=== PATIENT | male | born 1950 | race Caucasian/White ===

== ENCOUNTER 2020-10-21 08:34 | Emergency (ER) | payer MEDICARE ==
[~2020-10-21] VITALS: Ht 185.4 cm; Wt 90.7 kg
[~2020-10-21 08:34] MED LIST: NORPTMEDS CO
[2020-10-21 09:12] VITALS: BP 148/96
[2020-10-21] MEDS ORDERED: LIDOCAINE 1% HCL (LOCAL ANESTH.) INJ 20ML MDV IJ ONE (09:30)
== END 2020-10-21 09:04 | disposition home or self-care (01) ==
LOC: ER 08:34
DX: S61.012A Laceration without foreign body of left thumb without damage to nail, initial encounter (principal); F17.210 Nicotine dependence, cigarettes, uncomplicated; W27.0XXA Contact with workbench tool, initial encounter; Y93.89 Activity, other specified; Y92.89 Other specified places as the place of occurrence of the external cause; Y99.8 Other external cause status
CPT/HCPCS: 12002; 73140

== ENCOUNTER 2022-03-26 02:28 | Inpatient (IN) | payer MEDICARE, OTHER ==
[2022-03-26] VITALS (50 sets, daily range): BP systolic 70–126; BP diastolic 38–72
[~2022-03-26] VITALS: Ht 182.9 cm; Wt 93.4 kg
[2022-03-26] MEDS ORDERED: ONDANSETRON HCL 4 MG/2 ML VIAL IV ONE (02:45)
[2022-03-26] MEDS ORDERED: SODIUM CHLORIDE 0.9% 1,000 ML IV ONE ×3 (02:45→09:30)
[2022-03-26 02:54] LABS: Basophils # (auto) 0 10 ^3/uL (0-0.2); Basophils % (auto) 0.1 % (0.0-2.0); Eosinophils # (auto) 0 10 ^3/uL (0-0.8); Eosinophils % (auto) 0.2 % (0.0-7.0); Hematocrit 32.4 % (41.0-53.0); Hemoglobin 10.7 g/dL (13.5-17.5); Lymphocytes # (auto) 2.4 10 ^3/uL (0.4-5.4); Lymphocytes % (auto) 14.3 % (10.0-50.0); Mean Corpuscular Hemoglobin 32.9 pg (28.0-32.0); Mean Corpuscular Volume 99.6 fL (80.0-100.0); Monocytes # (auto) 0.1 10 ^3/uL (0-1.3); Monocytes % (auto) 0.9 % (0.0-12.0); Neutrophils % (auto) 84.5 % (37.0-80.0); Nucleated Red Blood Cells % 0.1 %; Red Blood Cells 3.25 10^6/uL (4.5-5.90); Red Cell Distribution Width 12.7 % (11.8-14.3); White Blood Cell 16.6 10^3/uL (4.4-10.8)
[2022-03-26 03:22] LABS: Albumin 2.9 g/dL (3.4-5.0); Anion Gap 13 (5-15); Blood Alcohol < 3.0 mg/dL (0-5); Blood Urea Nitrogen 40 mg/dL (7-18); Calcium 8.2 mg/dL (8.5-10.1); Carbon Dioxide 20 mmol/L (21-32); Chloride 112 mmol/L (98-107); Glucose 219 mg/dL (74-106); Potassium 4.7 mmol/L (3.5-5.1); Sodium 145 mmol/L (136-145)
[2022-03-26 03:25] LABS: Alanine Aminotransferase 104 U/L (16-61); Alkaline Phosphatase 42 U/L (45-117); Aspartate Aminotransferase 79 U/L (15-37); BUN/Creatinine Ratio 32.5; Bilirubin, Total 0.4 mg/dL (0.2-1.0); GFR African American 75 mL/min; GFR Non-African American 62 mL/min; Total Protein 5.4 g/dL (6.4-8.2)
[2022-03-26] MEDS: NOREPINEPHRINE 8 MG/250ML KIT 250 ML IV SCH (05:42)
[2022-03-26 08:39] LABS: Hemoglobin 10.1 g/dL (13.5-17.5)
[2022-03-26] MEDS ORDERED: PANTOPRAZOLE 40 MG/10 ML VIAL INJ IV ONE (09:30)
[2022-03-26] MEDS ORDERED: PANTOPRAZOLE 80 MG in SODIUM CHL 0.9% 100 ML IV ONE (09:30)
[2022-03-26 09:31] LABS: Urine Bacteria NONE SEEN /hpf (None Seen); Urine Blood Negative /uL (Negative); Urine Hyaline Cast FEW /lpf (0 - 2); Urine Mucus FEW (None Seen); Urine Specific Gravity 1.044 (1.001-1.035); Urine WBC 1 /hpf (0 - 3)
[2022-03-26 09:54] LABS: Hematocrit 29.2 % (41.0-53.0); Hemoglobin 9.7 g/dL (13.5-17.5)
[2022-03-26] MEDS ORDERED: ONDANSETRON HCL 4 MG/2 ML VIAL IV PRN (10:00)
[2022-03-26] MEDS: SODIUM CHLORIDE 0.9% 1,000 ML IV SCH ×2 (10:00→18:22)
[2022-03-26] MEDS ORDERED: DEXTROSE (50%) 50ML SYRG IV PRN (10:45)
[2022-03-26] MEDS ORDERED: cefTRIAXone 1GM/50ML D5W 50 ML IV SCH (11:30)
[2022-03-26] MEDS: InsuLIN REG 1unit/0.01ml Soln (100units/ml) SC SCH ×2 (12:28→18:00)
[2022-03-26] MEDS: ACCU-CHEK COMFORT CURVE STRIP VI SCH ×2 (12:28→18:22)
[2022-03-26 12:43] LABS: INR 1.25 (0.9-1.15)
[2022-03-26] MEDS: MORPHINE SULFATE INJ 2 MG/ml SYRG IV PRN (12:48)
[2022-03-26] MEDS ORDERED: VANCOMYCIN 1GM/250ML 250 ML IV SCH ×2 (13:30→22:00)
[2022-03-26] MEDS ORDERED: VANCOMYCIN PER PHARMACY 0 MG IV SCH (13:30)
[2022-03-26] MEDS ORDERED: VANCOMYCIN PER PHARMACY 1,000 MG IV SCH (13:45)
[2022-03-26] MEDS ORDERED: VANCOMYCIN 1GM/250ML 250 ML IV ONE (15:15)
[2022-03-26] MEDS: PIPERACILLIN-TAZOB 3.375GM 100 ML IV SCH ×2 (16:40→21:48)
[2022-03-26] MEDS ORDERED: PIPERACILLIN-TAZOB 3.375GM 100 ML IV SCH (18:00)
[2022-03-26] MEDS ORDERED: LORazepam 2MG/ML-1ML VIAL IV ONE ×2 (18:15→19:50)
[2022-03-26] MEDS ORDERED: HALOPERIDOL LACTATE 5 MG/ML INJ VIAL IM ONE (19:45)
[2022-03-26] MEDS ORDERED: LORazepam 2MG/ML-1ML VIAL ONE (19:49)
[2022-03-26] MEDS ORDERED: HALOPERIDOL LACTATE 5 MG/ML INJ VIAL ONE (19:54)
[2022-03-26 21:39] LABS: Hematocrit 26.6 % (41.0-53.0); Hemoglobin 9.3 g/dL (13.5-17.5)
[2022-03-26] MEDS: OCTREOTIDE ACETATE 500 MCG in SODIUM CHL 0.9% 99 ML IV SCH (21:48)
[2022-03-26] MEDS: PANTOPRAZOLE 40 MG/10 ML VIAL INJ IV SCH (21:48)
[2022-03-26 22:07] LABS: Lactic Acid w/Reflex 2.1 mmol/L (0.4-2.0)
[2022-03-27] VITALS (35 sets, daily range): BP systolic 91–138; BP diastolic 35–72
[2022-03-27] MEDS: ACCU-CHEK COMFORT CURVE STRIP VI SCH ×4 (00:10→17:38)
[2022-03-27] MEDS: LORazepam 2MG/ML-1ML VIAL IV PRN ×3 (00:12→21:55)
[2022-03-27] MEDS: SODIUM CHLORIDE 0.9% 1,000 ML IV SCH ×3 (00:38→17:14)
[2022-03-27 00:44] LABS: Hematocrit 24.5 % (41.0-53.0); Hemoglobin 8.7 g/dL (13.5-17.5)
[2022-03-27] MEDS: ACETAMINOPHEN 325 MG RECT SUPP PR PRN (01:36)
[2022-03-27] MEDS: OCTREOTIDE ACETATE 500 MCG in SODIUM CHL 0.9% 99 ML IV SCH ×3 (03:00→21:58)
[2022-03-27] MEDS: VANCOMYCIN 1GM/250ML 250 ML IV SCH ×2 (03:28→17:14)
[2022-03-27] MEDS: PIPERACILLIN-TAZOB 3.375GM 100 ML IV SCH ×4 (03:28→21:55)
[2022-03-27] MEDS: NOREPINEPHRINE 8 MG/250ML KIT 250 ML IV SCH (05:00)
[2022-03-27] MEDS: InsuLIN REG 1unit/0.01ml Soln (100units/ml) SC SCH ×4 (06:00→17:38)
[2022-03-27 06:44] LABS: Basophils # (auto) 0 10 ^3/uL (0-0.2); Basophils % (auto) 0.1 % (0.0-2.0); Eosinophils # (auto) 0 10 ^3/uL (0-0.8); Mean Corpuscular Hgb Conc. 34.8 g/dL (32.0-36.0)
[2022-03-27 06:45] LABS: Hematocrit 22.6 % (41.0-53.0); Hemoglobin 7.9 g/dL (13.5-17.5); Lymphocytes # (auto) 1.3 10 ^3/uL (0.4-5.4); Lymphocytes % (auto) 6.1 % (10.0-50.0); Mean Corpuscular Hemoglobin 33.3 pg (28.0-32.0); Mean Corpuscular Volume 95.6 fL (80.0-100.0); Monocytes # (auto) 0.9 10 ^3/uL (0-1.3); Monocytes % (auto) 4.2 % (0.0-12.0); Neutrophils # (auto) 19.2 10 ^3/uL (1.6-8.6); Neutrophils % (auto) 89.6 % (37.0-80.0); Red Blood Cells 2.36 10^6/uL (4.5-5.90); White Blood Cell 21.4 10^3/uL (4.4-10.8)
[2022-03-27 07:00] LABS: Potassium 4.2 mmol/L (3.5-5.1)
[2022-03-27 07:09] LABS: Albumin 2.8 g/dL (3.4-5.0); Bilirubin, Total 0.8 mg/dL (0.2-1.0); Calcium 7.9 mg/dL (8.5-10.1); Total Protein 4.8 g/dL (6.4-8.2)
[2022-03-27] MEDS: PANTOPRAZOLE 40 MG/10 ML VIAL INJ IV SCH ×2 (09:38→21:55)
[2022-03-27] MEDS: MORPHINE SULFATE INJ 2 MG/ml SYRG IV PRN ×3 (10:17→19:54)
[2022-03-27 10:29] LABS: Urine Bacteria NONE SEEN /hpf (None Seen); Urine Blood Negative /uL (Negative); Urine Specific Gravity 1.021 (1.001-1.035); Urine WBC 1 /hpf (0 - 3)
[2022-03-27 16:08] LABS: Hematocrit 23.8 % (41.0-53.0); Hemoglobin 8.1 g/dL (13.5-17.5)
[2022-03-27] MEDS ORDERED: HYDR-4798 PO (17:02)
[2022-03-27] MEDS ORDERED: PRAV20TA3 PO (17:02)
[2022-03-27] MEDS ORDERED: GABA300C10 PO (17:02)
[2022-03-27] MEDS ORDERED: RIVA20TA PO (17:02)
[2022-03-28] VITALS (49 sets, daily range): BP systolic 96–155; BP diastolic 40–110
[2022-03-28] MEDS: ACCU-CHEK COMFORT CURVE STRIP VI SCH ×5 (00:20→23:57)
[2022-03-28] MEDS: MORPHINE SULFATE INJ 2 MG/ml SYRG IV PRN ×5 (00:21→20:49)
[2022-03-28] MEDS: SODIUM CHLORIDE 0.9% 1,000 ML IV SCH ×2 (00:35→12:00)
[2022-03-28 01:12] LABS: Hematocrit 21.6 % (41.0-53.0); Hemoglobin 7.6 g/dL (13.5-17.5)
[2022-03-28] MEDS: LORazepam 2MG/ML-1ML VIAL IV PRN (03:21)
[2022-03-28] MEDS: PIPERACILLIN-TAZOB 3.375GM 100 ML IV SCH ×4 (03:42→23:00)
[2022-03-28] MEDS: NOREPINEPHRINE 8 MG/250ML KIT 250 ML IV SCH (05:00)
[2022-03-28] MEDS: InsuLIN REG 1unit/0.01ml Soln (100units/ml) SC SCH ×5 (06:00→23:57)
[2022-03-28] MEDS: VANCOMYCIN 1GM/250ML 250 ML IV SCH ×2 (07:30→15:20)
[2022-03-28 07:40] LABS: Basophils # (auto) 0.1 10 ^3/uL (0-0.2); Basophils % (auto) 0.4 % (0.0-2.0); Eosinophils # (auto) 0 10 ^3/uL (0-0.8); Eosinophils % (auto) 0.3 % (0.0-7.0); Hemoglobin 9.6 g/dL (13.5-17.5); Lymphocytes # (auto) 1.1 10 ^3/uL (0.4-5.4); Lymphocytes % (auto) 8.2 % (10.0-50.0); Mean Corpuscular Hemoglobin 32.7 pg (28.0-32.0); Mean Corpuscular Hgb Conc. 35.5 g/dL (32.0-36.0); Monocytes # (auto) 0.5 10 ^3/uL (0-1.3); Neutrophils # (auto) 11.8 10 ^3/uL (1.6-8.6); Neutrophils % (auto) 87.1 % (37.0-80.0); Nucleated Red Blood Cells % 0.1 %; Red Blood Cells 2.94 10^6/uL (4.5-5.90); Red Cell Distribution Width 14.4 % (11.8-14.3); White Blood Cell 13.5 10^3/uL (4.4-10.8)
[2022-03-28 07:54] LABS: INR 1.04 (0.9-1.15); Partial Thromboplastin Time 23.3 sec (24.6-33.4)
[2022-03-28] MEDS: OCTREOTIDE ACETATE 500 MCG in SODIUM CHL 0.9% 99 ML IV SCH ×2 (08:30→19:21)
[2022-03-28 08:33] LABS: Albumin 2.7 g/dL (3.4-5.0); BUN/Creatinine Ratio 32.9; Calcium 7.9 mg/dL (8.5-10.1); Magnesium 2.4 mg/dL (1.6-2.6); Potassium 3.8 mmol/L (3.5-5.1); Total Protein 5.5 g/dL (6.4-8.2)
[2022-03-28 08:38] LABS: Bilirubin, Total 1.1 mg/dL (0.2-1.0)
[2022-03-28] MEDS: PANTOPRAZOLE 40 MG/10 ML VIAL INJ IV SCH ×2 (10:10→22:00)
[2022-03-28 12:23] LABS: Hematocrit 25.8 % (41.0-53.0); Hemoglobin 9.3 g/dL (13.5-17.5)
[2022-03-28] MEDS ORDERED: CLINIMIX PER PHARMACY 0 ML IV SCH (17:15)
[2022-03-28] MEDS: CLINIMIX PER PHARMACY IV NR (21:01)
[2022-03-28] MEDS: D5W/SOD CHL 0.45% 1,000 ML IV SCH (21:09)
[2022-03-28] MEDS ORDERED: LORazepam 2MG/ML-1ML VIAL IV PRN (21:45)
[2022-03-29] VITALS (37 sets, daily range): BP systolic 100–148; BP diastolic 52–83
[2022-03-29] MEDS: MORPHINE SULFATE INJ 2 MG/ml SYRG IV PRN ×3 (03:21→12:55)
[2022-03-29] MEDS: VANCOMYCIN 1GM/250ML 250 ML IV SCH ×2 (03:21→16:30)
[2022-03-29 04:22] LABS: Albumin 2.6 g/dL (3.4-5.0); BUN/Creatinine Ratio 33.3; Calcium 7.4 mg/dL (8.5-10.1); Magnesium 2.1 mg/dL (1.6-2.6); Potassium 3.5 mmol/L (3.5-5.1)
[2022-03-29 04:24] LABS: INR 1.04 (0.9-1.15); Partial Thromboplastin Time 26.3 sec (24.6-33.4)
[2022-03-29 04:25] LABS: Bilirubin, Total 0.6 mg/dL (0.2-1.0); Phosphorus 2.5 mg/dL (2.5-4.90); Total Protein 5.1 g/dL (6.4-8.2)
[2022-03-29] MEDS: PIPERACILLIN-TAZOB 3.375GM 100 ML IV SCH ×4 (04:35→21:48)
[2022-03-29] MEDS: OCTREOTIDE ACETATE 500 MCG in SODIUM CHL 0.9% 99 ML IV SCH ×2 (04:35→15:02)
[2022-03-29] MEDS: NOREPINEPHRINE 8 MG/250ML KIT 250 ML IV SCH (05:00)
[2022-03-29] MEDS: ACCU-CHEK COMFORT CURVE STRIP VI SCH ×4 (06:46→23:39)
[2022-03-29] MEDS: InsuLIN REG 1unit/0.01ml Soln (100units/ml) SC SCH ×4 (06:47→23:39)
[2022-03-29] MEDS: D5W/SOD CHL 0.45% 1,000 ML IV SCH (08:05)
[2022-03-29] MEDS ORDERED: diphenhdrAMINE HCL 50 MG/1 ML VL ONE (09:43)
[2022-03-29] MEDS ORDERED: LIDOCAINE VISCOUS 2% 15ML UD ONE (09:43)
[2022-03-29] MEDS ORDERED: SODIUM CHLORIDE LOCK 10 ML ONE (09:43)
[2022-03-29] MEDS ORDERED: fentaNYL CITRATE 100 MCG/2 ML VL ONE (09:44)
[2022-03-29] MEDS: PANTOPRAZOLE 40 MG/10 ML VIAL INJ IV SCH ×2 (10:00→21:48)
[2022-03-29 10:18] LABS: Basophils # (auto) 0 10 ^3/uL (0-0.2); Basophils % (auto) 0.3 % (0.0-2.0); Eosinophils # (auto) 0.1 10 ^3/uL (0-0.8); Eosinophils % (auto) 1.2 % (0.0-7.0); Hematocrit 28.2 % (41.0-53.0); Lymphocytes # (auto) 1.9 10 ^3/uL (0.4-5.4); Lymphocytes % (auto) 18.6 % (10.0-50.0); Mean Corpuscular Hemoglobin 32.5 pg (28.0-32.0); Mean Corpuscular Hgb Conc. 35.4 g/dL (32.0-36.0); Mean Corpuscular Volume 91.6 fL (80.0-100.0); Monocytes # (auto) 0.6 10 ^3/uL (0-1.3); Monocytes % (auto) 5.7 % (0.0-12.0); Neutrophils # (auto) 7.5 10 ^3/uL (1.6-8.6); Neutrophils % (auto) 74.2 % (37.0-80.0); Nucleated Red Blood Cells % 0.4 %; Red Blood Cells 3.08 10^6/uL (4.5-5.90); White Blood Cell 10.1 10^3/uL (4.4-10.8)
[2022-03-29] MEDS: fentaNYL CITRATE 100 MCG/2 ML VL ONE ×3 (11:37→16:11)
[2022-03-29] MEDS ORDERED: MIDAZOLAM HCL 2MG/2ML 2ml VIAL (1mg/ml) ONE (11:38)
[2022-03-29] MEDS ORDERED: POTASSIUM PHOSPHATE 22 MEQ in SODIUM CHL 0.9% 100 ML IV ONE (14:00)
[2022-03-29] MEDS: MIDAZOLAM HCL 5 MG/ML-1ML VIAL ONE ×2 (16:08→16:11)
[2022-03-29] MEDS ORDERED: GOLYTELY 4L KIT PO ONE (16:45)
[2022-03-29] MEDS ORDERED: POLYETHYLENE GLYCOL 17 GM PWDR PO ONE (16:45)
[2022-03-29 18:13] LABS: Free T4 (Free Thyroxine) 0.67 ng/dL (0.89-1.76)
[2022-03-29] MEDS: CLINIMIX PER PHARMACY IV NR (20:37)
[2022-03-29] MEDS: HYDROcodone-ACET 10/325MG TAB PO PRN (20:37)
[2022-03-29 21:06] LABS: Folate (Folic Acid) 14.02 ng/mL (5.38-24)
[2022-03-29 22:14] LABS: Basophils # (auto) 0 10 ^3/uL (0-0.2); Basophils % (auto) 0.2 % (0.0-2.0); Eosinophils # (auto) 0.2 10 ^3/uL (0-0.8); Eosinophils % (auto) 1.8 % (0.0-7.0); Hematocrit 28.1 % (41.0-53.0); Hemoglobin 9.8 g/dL (13.5-17.5); Lymphocytes # (auto) 1.9 10 ^3/uL (0.4-5.4); Mean Corpuscular Hemoglobin 32.6 pg (28.0-32.0); Mean Corpuscular Hgb Conc. 34.8 g/dL (32.0-36.0); Mean Corpuscular Volume 93.8 fL (80.0-100.0); Monocytes # (auto) 0.5 10 ^3/uL (0-1.3); Monocytes % (auto) 5.6 % (0.0-12.0); Neutrophils # (auto) 6.2 10 ^3/uL (1.6-8.6); Neutrophils % (auto) 70.4 % (37.0-80.0); Nucleated Red Blood Cells % 0.2 %; Red Cell Distribution Width 14.4 % (11.8-14.3); White Blood Cell 8.7 10^3/uL (4.4-10.8)
[2022-03-30] VITALS (51 sets, daily range): BP systolic 97–164; BP diastolic 53–90
[2022-03-30] MEDS: OCTREOTIDE ACETATE 500 MCG in SODIUM CHL 0.9% 99 ML IV SCH ×3 (00:44→20:04)
[2022-03-30] MEDS: HYDROcodone-ACET 10/325MG TAB PO PRN ×4 (02:13→20:04)
[2022-03-30] MEDS: D5W/SOD CHL 0.45% 1,000 ML IV SCH ×2 (03:16→10:45)
[2022-03-30] MEDS: VANCOMYCIN 1GM/250ML 250 ML IV SCH (03:31)
[2022-03-30] MEDS: PIPERACILLIN-TAZOB 3.375GM 100 ML IV SCH (04:33)
[2022-03-30 04:41] LABS: Basophils # (auto) 0 10 ^3/uL (0-0.2); Basophils % (auto) 0.3 % (0.0-2.0); Eosinophils # (auto) 0.2 10 ^3/uL (0-0.8); Eosinophils % (auto) 2.5 % (0.0-7.0); Hematocrit 26.8 % (41.0-53.0); Hemoglobin 9.2 g/dL (13.5-17.5); Lymphocytes # (auto) 1.7 10 ^3/uL (0.4-5.4); Lymphocytes % (auto) 23.7 % (10.0-50.0); Mean Corpuscular Hemoglobin 32.3 pg (28.0-32.0); Mean Corpuscular Hgb Conc. 34.5 g/dL (32.0-36.0); Mean Corpuscular Volume 93.6 fL (80.0-100.0); Monocytes # (auto) 0.4 10 ^3/uL (0-1.3); Monocytes % (auto) 5.5 % (0.0-12.0); Nucleated Red Blood Cells % 0.2 %; Red Blood Cells 2.86 10^6/uL (4.5-5.90); Red Cell Distribution Width 14.2 % (11.8-14.3); White Blood Cell 7.3 10^3/uL (4.4-10.8)
[2022-03-30] MEDS: NOREPINEPHRINE 8 MG/250ML KIT 250 ML IV SCH (05:00)
[2022-03-30 05:14] LABS: Albumin 2.4 g/dL (3.4-5.0); BUN/Creatinine Ratio 22.5; Bilirubin, Total 0.7 mg/dL (0.2-1.0); Calcium 7.1 mg/dL (8.5-10.1); Magnesium 2.3 mg/dL (1.6-2.6); Phosphorus 2.7 mg/dL (2.5-4.90); Potassium 3.6 mmol/L (3.5-5.1); Total Protein 4.6 g/dL (6.4-8.2)
[2022-03-30] MEDS: InsuLIN REG 1unit/0.01ml Soln (100units/ml) SC SCH ×3 (05:32→17:49)
[2022-03-30] MEDS: ACCU-CHEK COMFORT CURVE STRIP VI SCH ×3 (05:33→17:49)
[2022-03-30] MEDS ORDERED: GOLYTELY 4L KIT PO ONE (06:00)
[2022-03-30] MEDS ORDERED: MIDAZOLAM HCL 5 MG/ML-1ML VIAL ONE (09:09)
[2022-03-30] MEDS ORDERED: SODIUM CHLORIDE LOCK 10 ML ONE (09:09)
[2022-03-30] MEDS ORDERED: fentaNYL CITRATE 100 MCG/2 ML VL ONE (09:09)
[2022-03-30] MEDS ORDERED: diphenhdrAMINE HCL 50 MG/1 ML VL ONE (09:09)
[2022-03-30] MEDS: PANTOPRAZOLE 40 MG/10 ML VIAL INJ IV SCH ×2 (09:48→22:23)
[2022-03-30] MEDS ORDERED: CYANOCOBALAMIN (B-12) 1000 MCG/1 ML VIAL IM ONE (10:00)
[2022-03-30] MEDS: cefTRIAXone 1GM/50ML D5W 50 ML IV SCH (10:29)
[2022-03-30 10:44] LABS: Basophils # (auto) 0 10 ^3/uL (0-0.2); Basophils % (auto) 0.4 % (0.0-2.0); Eosinophils # (auto) 0.2 10 ^3/uL (0-0.8); Eosinophils % (auto) 2.7 % (0.0-7.0); Hematocrit 30.6 % (41.0-53.0); Hemoglobin 10.5 g/dL (13.5-17.5); Lymphocytes # (auto) 1.6 10 ^3/uL (0.4-5.4); Mean Corpuscular Hemoglobin 32.3 pg (28.0-32.0); Mean Corpuscular Hgb Conc. 34.2 g/dL (32.0-36.0); Mean Corpuscular Volume 94.4 fL (80.0-100.0); Monocytes # (auto) 0.3 10 ^3/uL (0-1.3); Monocytes % (auto) 4.8 % (0.0-12.0); Neutrophils % (auto) 70.1 % (37.0-80.0); Nucleated Red Blood Cells % 0.1 %; Red Blood Cells 3.24 10^6/uL (4.5-5.90); Red Cell Distribution Width 14.2 % (11.8-14.3); White Blood Cell 7.1 10^3/uL (4.4-10.8)
[2022-03-30] MEDS ORDERED: EPINEPHrine HCL 1 MG/10 ML SYRG ONE (16:43)
[2022-03-30] MEDS: CLINIMIX PER PHARMACY IV NR (20:04)
[2022-03-30 22:38] LABS: Red Blood Cells 3.08 10^6/uL (4.5-5.90)
[2022-03-30 22:42] LABS: Hematocrit 28.7 % (41.0-53.0); Mean Corpuscular Hemoglobin 32.5 pg (28.0-32.0); Mean Corpuscular Hgb Conc. 34.8 g/dL (32.0-36.0); Mean Corpuscular Volume 93.4 fL (80.0-100.0); Red Cell Distribution Width 14.1 % (11.8-14.3)
[2022-03-30 22:52] LABS: Basophils % (manual) 0 (0.0-2.0); Blast Cells 0; Metamyelocytes % 0; Myelocytes % 0; Promyelocytes % 0; Reactive Lymphocytes 0
[2022-03-30 22:54] LABS: Band Neutrophils % (manual) 1; Eosinophils % (manual) 3 (0-7); Lymphocytes % (manual) 24 (10.0-50.0); Monocytes % (manual) 8 (0-12)
[2022-03-31] VITALS (29 sets, daily range): BP systolic 87–139; BP diastolic 65–96
[2022-03-31] MEDS: ACCU-CHEK COMFORT CURVE STRIP VI SCH ×4 (00:03→17:59)
[2022-03-31] MEDS: D5W/SOD CHL 0.45% 1,000 ML IV SCH ×3 (00:05→17:36)
[2022-03-31] MEDS: HYDROcodone-ACET 10/325MG TAB PO PRN ×4 (02:04→20:25)
[2022-03-31 04:38] LABS: Albumin 2.4 g/dL (3.4-5.0); Calcium 7.2 mg/dL (8.5-10.1); Magnesium 1.8 mg/dL (1.6-2.6); Potassium 3.1 mmol/L (3.5-5.1)
[2022-03-31 04:41] LABS: BUN/Creatinine Ratio 14.7; Bilirubin, Total 0.7 mg/dL (0.2-1.0); Phosphorus 2.4 mg/dL (2.5-4.90); Total Protein 4.6 g/dL (6.4-8.2)
[2022-03-31] MEDS: NOREPINEPHRINE 8 MG/250ML KIT 250 ML IV SCH (05:00)
[2022-03-31] MEDS: OCTREOTIDE ACETATE 500 MCG in SODIUM CHL 0.9% 99 ML IV SCH ×3 (05:15→17:36)
[2022-03-31] MEDS: InsuLIN REG 1unit/0.01ml Soln (100units/ml) SC SCH ×4 (06:00→17:59)
[2022-03-31] MEDS ORDERED: POTASSIUM CHL 20MEQ/100ML 100 ML IV ONE (08:45)
[2022-03-31] MEDS ORDERED: cefTRIAXone 1GM/50ML D5W 50 ML IV SCH (09:00)
[2022-03-31] MEDS: cefTRIAXone 1GM/50ML D5W 50 ML IV SCH (09:15)
[2022-03-31] MEDS: PANTOPRAZOLE 40 MG/10 ML VIAL INJ IV SCH ×2 (10:00→21:43)
[2022-03-31] MEDS: CYANOCOBALAMIN 500 MCG TAB PO SCH (10:00)
[2022-03-31] MEDS ORDERED: POTASSIUM PHOSP 22MEQ(15MMOLE) in NS 100 ML IV ONE (11:00)
[2022-03-31] MEDS ORDERED: GOLYTELY 4L KIT PO ONE ×2 (12:00→13:00)
[2022-03-31 12:22] LABS: Hematocrit 29.2 % (41.0-53.0); Hemoglobin 10.1 g/dL (13.5-17.5); Mean Corpuscular Hemoglobin 32.4 pg (28.0-32.0); Mean Corpuscular Hgb Conc. 34.5 g/dL (32.0-36.0); Red Blood Cells 3.11 10^6/uL (4.5-5.90); Red Cell Distribution Width 14.2 % (11.8-14.3); White Blood Cell 7.9 10^3/uL (4.4-10.8)
[2022-03-31 12:44] LABS: Basophils % (manual) 0 (0.0-2.0); Blast Cells 0; Myelocytes % 0; Promyelocytes % 0; Reactive Lymphocytes 0
[2022-03-31 15:45] LABS: Band Neutrophils % (manual) 2; Eosinophils % (manual) 4 (0-7); Lymphocytes % (manual) 17 (10.0-50.0); Metamyelocytes % 1; Monocytes % (manual) 6 (0-12)
[2022-03-31] MEDS ORDERED: POLYETHYLENE GLYCOL 17 GM PWDR PO ONE (21:00)
[2022-03-31] MEDS: CLINIMIX PER PHARMACY IV NR (21:26)
[2022-03-31] MEDS: ACETAMINOPHEN 325 MG RECT SUPP PR PRN (22:22)
[2022-04-01] VITALS (16 sets, daily range): BP systolic 116–145; BP diastolic 48–86
[2022-04-01] MEDS: ACCU-CHEK COMFORT CURVE STRIP VI SCH ×4 (00:48→18:24)
[2022-04-01] MEDS: HYDROcodone-ACET 10/325MG TAB PO PRN ×4 (02:06→19:59)
[2022-04-01 04:16] LABS: Hematocrit 28.7 % (41.0-53.0); Hemoglobin 9.8 g/dL (13.5-17.5); Mean Corpuscular Hgb Conc. 34.1 g/dL (32.0-36.0); Red Blood Cells 3.05 10^6/uL (4.5-5.90); Red Cell Distribution Width 13.8 % (11.8-14.3); White Blood Cell 9.1 10^3/uL (4.4-10.8)
[2022-04-01 04:37] LABS: Basophils % (manual) 0 (0.0-2.0); Blast Cells 0; Metamyelocytes % 0; Myelocytes % 0; Promyelocytes % 0; Reactive Lymphocytes 0
[2022-04-01 04:40] LABS: Albumin 2.4 g/dL (3.4-5.0); Calcium 7.7 mg/dL (8.5-10.1); Magnesium 2.2 mg/dL (1.6-2.6); Potassium 3.3 mmol/L (3.5-5.1)
[2022-04-01 04:44] LABS: BUN/Creatinine Ratio 11.1; Bilirubin, Total 0.6 mg/dL (0.2-1.0); Phosphorus 3.1 mg/dL (2.5-4.90); Total Protein 4.8 g/dL (6.4-8.2)
[2022-04-01] MEDS: NOREPINEPHRINE 8 MG/250ML KIT 250 ML IV SCH (05:00)
[2022-04-01] MEDS: InsuLIN REG 1unit/0.01ml Soln (100units/ml) SC SCH ×4 (06:00→18:00)
[2022-04-01 08:25] LABS: Band Neutrophils % (manual) 2; Eosinophils % (manual) 3 (0-7); Lymphocytes % (manual) 22 (10.0-50.0); Monocytes % (manual) 6 (0-12)
[2022-04-01] MEDS: CYANOCOBALAMIN 500 MCG TAB PO SCH ×2 (10:00→13:09)
[2022-04-01] MEDS: OCTREOTIDE ACETATE 500 MCG in SODIUM CHL 0.9% 99 ML IV SCH (11:15)
[2022-04-01] MEDS: cefTRIAXone 1GM/50ML D5W 50 ML IV SCH (12:11)
[2022-04-01] MEDS: PANTOPRAZOLE 40 MG/10 ML VIAL INJ IV SCH ×2 (12:12→21:49)
[2022-04-01 12:13] LABS: INR 1.16 (0.9-1.15); Partial Thromboplastin Time 25.2 sec (24.6-33.4)
[2022-04-01] MEDS ORDERED: POTASSIUM CHL 20MEQ/100ML 100 ML IV SCH (13:30)
[2022-04-01] MEDS ORDERED: SODIUM CHLORIDE LOCK 10 ML ONE (14:57)
[2022-04-01] MEDS ORDERED: diphenhdrAMINE HCL 50 MG/1 ML VL ONE (14:58)
[2022-04-01] MEDS: MIDAZOLAM HCL 5 MG/ML-1ML VIAL ONE ×2 (15:25→15:28)
[2022-04-01] MEDS: fentaNYL CITRATE 100 MCG/2 ML VL ONE ×2 (15:25→15:28)
[2022-04-01] MEDS: D5W/SOD CHL 0.45% 1,000 ML IV SCH (16:05)
[2022-04-01] MEDS ORDERED: POTASSIUM CHL 20 Meq TABLET PO ONE (16:15)
[2022-04-01] MEDS: MORPHINE SULFATE INJ 2 MG/ml SYRG IV PRN (22:26)
[2022-04-02] MEDS: HYDROcodone-ACET 10/325MG TAB PO PRN (02:28)
[2022-04-02 03:11] LABS: Albumin 2.6 g/dL (3.4-5.0); Calcium 7.7 mg/dL (8.5-10.1); Potassium 3.5 mmol/L (3.5-5.1)
[2022-04-02 03:13] LABS: BUN/Creatinine Ratio 12.2
[2022-04-02 03:15] LABS: Bilirubin, Total 0.6 mg/dL (0.2-1.0); Total Protein 5.3 g/dL (6.4-8.2)
[2022-04-02 05:00] VITALS: BP 125/69
[2022-04-02] MEDS: NOREPINEPHRINE 8 MG/250ML KIT 250 ML IV SCH (05:59)
[2022-04-02] MEDS: ACCU-CHEK COMFORT CURVE STRIP VI SCH ×2 (06:00)
[2022-04-02] MEDS: InsuLIN REG 1unit/0.01ml Soln (100units/ml) SC SCH ×2 (06:00)
[2022-04-02] MEDS: MORPHINE SULFATE INJ 2 MG/ml SYRG IV PRN (06:04)
[2022-04-02 06:33] LABS: Hematocrit 29.1 % (41.0-53.0); Hemoglobin 10.1 g/dL (13.5-17.5); Mean Corpuscular Hemoglobin 32.9 pg (28.0-32.0); Mean Corpuscular Hgb Conc. 34.7 g/dL (32.0-36.0); Mean Corpuscular Volume 94.8 fL (80.0-100.0); Red Blood Cells 3.08 10^6/uL (4.5-5.90); Red Cell Distribution Width 14.2 % (11.8-14.3); White Blood Cell 7.6 10^3/uL (4.4-10.8)
[2022-04-02 06:48] LABS: Basophils % (manual) 0 (0.0-2.0); Blast Cells 0; Metamyelocytes % 0; Promyelocytes % 0; Reactive Lymphocytes 0
[2022-04-02 08:04] LABS: Band Neutrophils % (manual) 2; Eosinophils % (manual) 3 (0-7); Lymphocytes % (manual) 29 (10.0-50.0); Monocytes % (manual) 5 (0-12); Myelocytes % 2
[2022-04-02 09:00] VITALS: BP 127/67
[2022-04-02] MEDS: CYANOCOBALAMIN 500 MCG TAB PO SCH (10:00)
[2022-04-02] MEDS: cefTRIAXone 1GM/50ML D5W 50 ML IV SCH (11:17)
[2022-04-02] MEDS: PANTOPRAZOLE 40 MG/10 ML VIAL INJ IV SCH (11:18)
== END 2022-04-02 12:54 | disposition home or self-care (01) | DRG 871 ==
LOC: EDUNIT# 02:28 → EDBD 02:28 → ER 02:31 → ICU WEST 09:53 → TELE-WESTW 04-01 22:07
PROVIDERS: ADMIT Nurse Practitioner Family; ATTEND Internal Medicine Geriatric Medicine
PROC: 30233N1 Transfusion of Nonautologous Red Blood Cells into Peripheral Vein, Percutaneous Approach (ICD-10-PCS; 2022-03-26)
PROC: 30233K1 Transfusion of Nonautologous Frozen Plasma into Peripheral Vein, Percutaneous Approach (ICD-10-PCS; 2022-03-26)
PROC: 0DB68ZX Excision of Stomach, Via Natural or Artificial Opening Endoscopic, Diagnostic (ICD-10-PCS; 2022-03-29)
PROC: 06H03DZ Insertion of Intraluminal Device into Inferior Vena Cava, Percutaneous Approach (ICD-10-PCS; 2022-03-29)
PROC: 0DB98ZX Excision of Duodenum, Via Natural or Artificial Opening Endoscopic, Diagnostic (ICD-10-PCS; principal; 2022-03-29 15:15)
PROC: 0DJD8ZZ Inspection of Lower Intestinal Tract, Via Natural or Artificial Opening Endoscopic (ICD-10-PCS; 2022-03-30)
PROC: 0DBK8ZZ Excision of Ascending Colon, Via Natural or Artificial Opening Endoscopic (ICD-10-PCS; 2022-04-01)
PROC: 0DBM8ZX Excision of Descending Colon, Via Natural or Artificial Opening Endoscopic, Diagnostic (ICD-10-PCS; 2022-04-01)
DX: A41.9 Sepsis, unspecified organism (principal); G93.41 Metabolic encephalopathy; I21.A1 Myocardial infarction type 2; J96.01 Acute respiratory failure with hypoxia; R57.1 Hypovolemic shock; R65.21 Severe sepsis with septic shock; K29.91 Gastroduodenitis, unspecified, with bleeding; K25.4 Chronic or unspecified gastric ulcer with hemorrhage; K57.31 Diverticulosis of large intestine without perforation or abscess with bleeding; K29.71 Gastritis, unspecified, with bleeding; E87.0 Hyperosmolality and hypernatremia; D62 Acute posthemorrhagic anemia; J93.9 Pneumothorax, unspecified; G93.1 Anoxic brain damage, not elsewhere classified; E44.1 Mild protein-calorie malnutrition; Z68.27 Body mass index [BMI] 27.0-27.9, adult; Z20.822 Contact with and (suspected) exposure to COVID-19; K44.9 Diaphragmatic hernia without obstruction or gangrene; E86.0 Dehydration; E86.1 Hypovolemia; K63.5 Polyp of colon; T68.XXXA Hypothermia, initial encounter; K64.8 Other hemorrhoids; F17.210 Nicotine dependence, cigarettes, uncomplicated; I10 Essential (primary) hypertension; J32.0 Chronic maxillary sinusitis; Z80.3 Family history of malignant neoplasm of breast; Z79.01 Long term (current) use of anticoagulants; Z83.3 Family history of diabetes mellitus; Z85.3 Personal history of malignant neoplasm of breast; Z86.711 Personal history of pulmonary embolism; Z86.718 Personal history of other venous thrombosis and embolism; Z90.3 Acquired absence of stomach [part of]; Z95.828 Presence of other vascular implants and grafts; Z87.11 Personal history of peptic ulcer disease; Z85.51 Personal history of malignant neoplasm of bladder
CPT/HCPCS: 36415; 36430; 37191; 43239; 45378; 45380; 45385; 70450; 70551; 71045; 72125; 74177; 76000; 76942; 80053; 80061; 80202; 80320; 81001; 82270; 82565; 82607; 82746; 82962; 83036; 83605; 83690; 83735; 84100; 84439; 84443; 84484; 85007; 85014; 85018; 85025; 85027; 85384; 85610; 85730; 86850; 86900; 86901; 86920; 87040; 87081; 87086; 87426; 87493; 93005; 93306; 93970; 95819; 96361; 96365; 96375; 99152; 99291; C9113; G0378; J0696; J2250; J2405; J2543; J3480

== ENCOUNTER 2022-04-07 09:46 | Emergency (ER) | payer OTHER ==
[~2022-04-07] VITALS: Ht 185.4 cm; Wt 82.0 kg
[~2022-04-07 09:46] MED LIST changes: +GABA300C10 PO; +HYDR-4798 PO; -NORPTMEDS CO; +PRAV20TA3 PO
[2022-04-07 10:06] VITALS: BP 148/83
[2022-04-07 11:04] LABS: Basophils # (auto) 0 10 ^3/uL (0-0.2); Basophils % (auto) 0.4 % (0.0-2.0); Eosinophils # (auto) 0.1 10 ^3/uL (0-0.8); Eosinophils % (auto) 1.6 % (0.0-7.0); Hematocrit 31.6 % (41.0-53.0); Hemoglobin 10.6 g/dL (13.5-17.5); Lymphocytes # (auto) 1.1 10 ^3/uL (0.4-5.4); Lymphocytes % (auto) 19.5 % (10.0-50.0); Mean Corpuscular Hemoglobin 31.9 pg (28.0-32.0); Mean Corpuscular Hgb Conc. 33.5 g/dL (32.0-36.0); Mean Corpuscular Volume 95.3 fL (80.0-100.0); Monocytes # (auto) 0.3 10 ^3/uL (0-1.3); Monocytes % (auto) 5.7 % (0.0-12.0); Neutrophils # (auto) 4.2 10 ^3/uL (1.6-8.6); Neutrophils % (auto) 72.8 % (37.0-80.0); Red Blood Cells 3.31 10^6/uL (4.5-5.90); Red Cell Distribution Width 15.1 % (11.8-14.3); White Blood Cell 5.8 10^3/uL (4.4-10.8)
[2022-04-07 11:13] LABS: Calcium 8.6 mg/dL (8.5-10.1); Potassium 4.2 mmol/L (3.5-5.1)
[2022-04-07 11:49] LABS: Bilirubin, Total 0.5 mg/dL (0.2-1.0)
[2022-04-07] MEDS ORDERED: IOHEXOL 350 MG/ML 100ML IJ ONE (12:01)
[2022-04-07] MEDS ORDERED: HYDROcodone-ACET 5/325MG TAB PO ONE (14:00)
== END 2022-04-07 16:35 | disposition home or self-care (01) ==
LOC: ER 09:46
DX: R07.81 Pleurodynia (principal); E44.1 Mild protein-calorie malnutrition; M79.18 Myalgia, other site; E78.5 Hyperlipidemia, unspecified; Z68.23 Body mass index [BMI] 23.0-23.9, adult
CPT/HCPCS: 36415; 71275; 80053; 84484; 85025; 93005; 99285; Q9967